=== PATIENT | female | born 1965 | race Caucasian/White ===

== ENCOUNTER 2019-06-17 17:54 | Emergency (ER) | payer BC ==
[2019-06-17 18:12] VITALS: TEMP 98.1; BMI 36.1
[2019-06-17] MEDS ORDERED: FAMOTIDINE 10 MG TABLET PO ONE (18:25)
--- NOTE | 2019-06-17 18:43 | PDOC ---
History of Present Illness - General Chief Complaint: Chest Pain Stated Complaint: CHEST PAIN SENT FROM URGENT CARE Time Seen by Provider: 06/17/19 17:58 - History of Present Illness Initial Comments: Ms. Joyce is a 53 year old female with past medical history of GERD presenting with complaint of chest pain. She reports first experiencing this chest pain two days ago around 5am. The pain woke her from sleep, however, it resolved by 8am. Patient did not take any medication or seek medical treatment at that time. Patient experienced the chest pain again today around 3pm and reported recurrent bouts of the pain. She describes the pain as a tightness, boring straight through to her back. The pain was slightly alleviated when bending forwards. Patient was advised to take a baby aspirin by around 4:30pm, and states that the pain resolved afterwards. She then decided to go to an urgent care where EKG demonstrated low voltage QRS complexes and she was instructed to present to the ED. Patient currently denies any further pain since taking the aspirin. Patient denies any associated h/n/v/d, changes in vision, or SOB. Patient is followed by an outpatient director global sales for mitral valve regurgitation. She has had intermittent chest pain over the past several years, and had worked up - cardiac etiology has not been found. Reports that this episode of pain feels slightly worse than prior. Past History - Past Medical History Allergies/Adverse Reactions: Allergies Allergy/AdvReac Type Severity Reaction Status Date / Time Penicillins Allergy Mild Verified 06/17/19 17:56 Home Medications: Ambulatory Orders NK [No Known Home Medication] 06/17/19 COPD: No GI Disorders: Yes (GERD) Hypercholesterolemia: Yes Other medical history: BRAIN LESION ,VERTIGO - Psycho Social/Smoking Cessation Hx Smoking Status: No Smoking History: Never smoked Number of Cigarettes Smoked Daily: 0 Information on smoking cessation initiated: No Hx Alcohol Use: No Drug/Substance Use Hx: No Review of Systems - Review of Systems Comments:: ROS GENERAL/CONSTITUTIONAL: No fever or chills. No weakness._ HEAD, EYES, EARS, NOSE AND THROAT: No change in vision. No change in hearing. No sore throat._ CARDIOVASCULAR: Reports chest pain. No shortness of breath_ RESPIRATORY: Denies cough, hemoptysis_ GASTROINTESTINAL: No nausea, vomiting, diarrhea or constipation._ GENITOURINARY: No dysuria, frequency, or change in urination._ MUSCULOSKELETAL: No joint or muscle swelling or pain. No neck or back pain._ SKIN: No rash_ NEUROLOGIC: No headache, vertigo, loss of consciousness, or change in strength/ sensation._ ENDOCRINE: No increased thirst. No abnormal weight change_ HEMATOLOGIC/LYMPHATIC: No anemia, easy bleeding, or history of blood clots._ ALLERGIC/IMMUNOLOGIC: No hives or skin allergy._ *Physical Exam - Vital Signs Last Vital Signs Temp Pulse Resp BP Pulse Ox 98.1 F 77 17 143/92 99 06/17/19 17:56 06/17/19 20:23 06/17/19 20:23 06/17/19 20:23 06/17/19 20:23 - Physical Exam Comments: GENERAL: Awake, alert, and oriented to person/place/time, in no acute distress_ HEAD: No signs of trauma, normocephalic, atraumatic _ EYES: PERRLA, EOMI, sclera anicteric, conjunctiva clear_ ENT: Hearing grossly normal, nares patent, oropharynx clear without exudates. No uvular deviation. Moist mucosa_ NECK: Normal ROM, supple, no lymphadenopathy, JVD, or masses_ LUNGS: No distress, speaks in full sentences, clear to auscultation bilaterally _ CHEST: No rash or lesions. No TTP. HEART: Regular rate and rhythm, normal S1 and S2, 1/6 mitral murmur, peripheral pulses normal and equal bilaterally._ ABDOMEN: Soft, nontender, normoactive bowel sounds. No guarding, no rebound. No masses_ EXTREMITIES: Normal inspection, Normal range of motion, no edema. No clubbing or cyanosis_ NEUROLOGICAL: Cranial nerves II through XII grossly intact. Normal speech, normal gait, no focal sensorimotor deficits _ SKIN: Warm, Dry, normal turgor, no rashes or lesions noted_ ED Treatment Course - LABORATORY CBC & Chemistry Diagram: 06/17/19 18:50 06/17/19 18:50 - ADDITIONAL ORDERS Additional order review: Laboratory Results 06/17/19 06/17/19 06/17/19 18:50 18:50 18:50 Sodium 138 Potassium 4.5 Chloride 102 Carbon Dioxide 28 Anion Gap 8 BUN 11.0 Creatinine 0.7 Est GFR (CKD-EPI)AfAm 113.84 Est GFR (CKD-EPI)NonAf 98.23 Random Glucose 105 Calcium 9.0 Magnesium 1.9 Total Bilirubin 0.7 AST 25 ALT 29 Alkaline Phosphatase 97 Creatine Kinase 62 Troponin I < 0.03 Total Protein 7.9 Albumin 4.4 06/17/19 18:50 RBC 4.93 MCV 92.6 MCHC 33.4 RDW 13.7 MPV 9.1 Neutrophils % 66.6 Lymphocytes % 23.5 Monocytes % 6.6 Eosinophils % 2.6 Basophils % 0.7 - Medications Given in the ED: ED Medications Discontinued Medications Generic Name Dose Route Start Last Admin Trade Name Paul PRN Reason Stop Dose Admin Al Hydroxide/Mg Hydroxide 30 ml 06/17/19 19:15 06/17/19 19:28 Mylanta Oral Suspension - PO 06/17/19 19:16 30 ml ONCE ONE Administration Famotidine/Sodium Chloride 20 mg in 50 mls @ 100 mls/hr 06/17/19 19:15 19:28 Pepcid 20 Mg Premixed Ivpb - IVPB 06/17/19 19:44 100 mls/hr ONCE ONE Administration Medical Decision Making - Medical Decision Making 06/17/19 1800 53F with hx of GERD and mitral regurgitation presenting with midsternal chest pain that started 2 days ago. Sent in from urgent care for low voltage EKG. Reports similar prior episodes of chest pain but states that this is worse. No other medical history. Denies recent illness or sick contacts. DDx is broad and includes r/o ACS vs GERD vs costochondritis vs musculoskeletal pain. Obtain CBC, CMP, trop, EKG, CXR. 06/17/19 19:00 POCUS cardiac does not appear to show any pericardial effusion. POCUS GB does not appear to show choleliths, gallbladder thickening, or sludge. Labs reviewed and wnl. 06/17/19 19:20 Pt signed out to Dr. Meyers. Discharge - Discharge Information Problems reviewed: Yes Clinical Impression/Diagnosis: Chest pain Qualifiers: Chest pain type: unspecified Qualified Code(s): R07.9 - Chest pain, unspecified Condition: Stable - Follow up/Referral Referrals: Nina Britton [Primary Care Provider] - - Patient Discharge Instructions Patient Printed Discharge Instructions: DI for Chest Pain Additional Instructions: Return to the emergency department immediately with ANY new, persistent or worsening symptoms. Continue any medications as previously prescribed by your physician. You should follow up with your primary doctor as soon as possible regarding today's emergency department visit. . Please make sure your doctor reviews the results of your emergency evaluation. Thank you for coming to the Emergency Department today for your care. It was a pleasure to see you today. Please note that your evaluation is INCOMPLETE until you follow-up with your doctor. - Post Discharge Activity
[2019-06-17 19:10] LABS: BASO % 0.7 % (0-2.0); EOS % 2.6 % (0-4.5); HEMATOCRIT 45.7 % (32.4-45.2); HEMOGLOBIN 15.2 GM/dl (10.7-15.3); LYMPH % 23.5 % (8-40); MCH 30.9 pg (25.7-33.7); MCHC 33.4 g/dl (32.0-36.0); MEAN CELL VOLUME 92.6 fl (80-96); MEAN PLT VOLUME 9.1 fl (7.5-11.1); MONO % 6.6 % (3.8-10.2); NEUT % 66.6 % (42.8-82.8); PLATELET COUNT 222 K/MM3 (134-434); RBC 4.93 M/mm3 (3.60-5.2); RDW 13.7 % (11.6-15.6); WHITE BLOOD COUNT 9.2 K/mm3 (4.0-10.8)
--- NOTE | 2019-06-17 19:13 | PDOC ---
Documentation entered by Yolanda Medellin SCRIBE, acting as scribe for Isaiah Hopkins MD. Isaiah Hopkins MD: This documentation has been prepared by the Vignesh donnelly Aiswarya, SCRIBE, under my direction and personally reviewed by me in its entirety. I confirm that the documentation accurately reflects all work, treatment, procedures, and medical decision making performed by me. Attending Attestation - Resident Resident Name: Beck Soares - ED Attending Attestation I have performed the following: I have examined & evaluated the patient, The case was reviewed & discussed with the resident, I agree w/resident's findings & plan - Medical Decision Making 06/17/19 19:02 A portion of this note was documented by [employer] under my direction. I have reviewed the details of the note, within reason, and agree with the documentation with the following case summary and management plan written by me. 53-year-old female with history of mildly elevated cholesterol, GERD, otherwise healthy and active daily presents with second episode of chest pain over the last 2 days. Patient's first episode was during her sleep 2 nights ago, awoke with chest discomfort and diaphoresis, lasted 3 hours, then resolved. Of note, this was after eating ice cream and tomato sauce at dinner. Patient was in her baseline good health the last 2 days, which include walking over 6000 steps daily without difficulty. Today, while standing at the kitchen counter without any strenuous activity, developed the same chest discomfort and nausea/belching for less than 1 minute, she was seen at an outside urgent care and referred to the emergency department for evaluation of possible low voltage EKG. No infectious symptoms, no DVT or PE risk factors or symptoms, currently asymptomatic since 3 PM. Patient had normal stress test this year with her radiology transcriptionist, who she sees for history of mild mitral regurgitation. Echo at that time was also normal. Exam is normal, bedside [id number] ultrasound shows no evidence of pericardial effusion, normal gross wall motion, and normal gallbladder. 53-year-old female presents with atypical chest pain story, no exercise limitations at baseline, asymptomatic at this time with normal EKG. Heart score is 2, overall low risk for ACS. Not clinically consistent with infectious process or PE. Check labs, one troponin measurement would suffice given 4 hours since symptom onset EKG is normal Chest x-ray Pepcid Reassess and disposition accordingly. If above is within normal limits and patient remains asymptomatic with a normal second EKG, can discharge to follow- up with her radiology transcriptionist. Patient agrees with plan, family at bedside. Heart Score/ECG Review - History History: Slightly suspicious - Electrocardiogram EKG: Normal - Age Age: 45-65 - Risk Factors Based on the list above the patient has:: 1-2 risk factors - Troponin Troponin: </= normal limit - Score Heart Score - Total: 2 #1 ECG reviewed & interpreted by me at: 18:31 General ECG Interpretation: Sinus Rhythm, Normal Rate (71), Normal Intervals ( qtc 441), No acute ischemic changes Compared to previous ECG there are: No significant change (c/w 03/08. [place] [facility] [place] abnormality (inverted P waves))
[2019-06-17] MEDS ORDERED: FAMOTIDINE 20 MG/50 ML IVPB 20 MG/50 ML MG IVPB ONE ×2 (19:15→19:18)
[2019-06-17] MEDS ORDERED: MAG HYDROX/AL HYDROX/SIMETH 30 ML UNIT-DOSE CUP PO ONE (19:15)
[2019-06-17] MEDS ORDERED: MAG HYDROX/AL HYDROX/SIMETH 30 ML UNIT-DOSE CUP ONE (19:18)
[2019-06-17 19:19] LABS: ALBUMIN 4.4 g/dl (3.4-5.0); BILIRUBIN,TOTAL 0.7 mg/dl (0.2-1); CREATININE 0.7 mg/dl (0.55-1.3); MAGNESIUM 1.9 mg/dL (1.8-2.4); POTASSIUM 4.5 mmol/L (3.5-5.1); TOT PROT 7.9 g/dl (6.4-8.2)
--- NOTE | 2019-06-17 20:11 | PDOC ---
*Physical Exam - Vital Signs Last Vital Signs Temp Pulse Resp BP Pulse Ox 98.1 F 73 16 155/93 100 06/17/19 17:56 06/17/19 17:56 06/17/19 17:56 06/17/19 17:56 06/17/19 17:56 ED Treatment Course - LABORATORY CBC & Chemistry Diagram: 06/17/19 18:50 06/17/19 18:50 - ADDITIONAL ORDERS Additional order review: Laboratory Results 06/17/19 06/17/19 06/17/19 18:50 18:50 18:50 Sodium 138 Potassium 4.5 Chloride 102 Carbon Dioxide 28 Anion Gap 8 BUN 11.0 Creatinine 0.7 Est GFR (CKD-EPI)AfAm 113.84 Est GFR (CKD-EPI)NonAf 98.23 Random Glucose 105 Calcium 9.0 Magnesium 1.9 Total Bilirubin 0.7 AST 25 ALT 29 Alkaline Phosphatase 97 Creatine Kinase 62 Troponin I < 0.03 Total Protein 7.9 Albumin 4.4 06/17/19 18:50 RBC 4.93 MCV 92.6 MCHC 33.4 RDW 13.7 MPV 9.1 Neutrophils % 66.6 Lymphocytes % 23.5 Monocytes % 6.6 Eosinophils % 2.6 Basophils % 0.7 - Medications Given in the ED: ED Medications Discontinued Medications Generic Name Dose Route Start Last Admin Trade Name Beq PRN Reason Stop Dose Admin Al Hydroxide/Mg Hydroxide 30 ml 06/17/19 19:15 06/17/19 19:28 Mylanta Oral Suspension - PO 06/17/19 19:16 30 ml ONCE ONE Administration Famotidine/Sodium Chloride 20 mg in 50 mls @ 100 mls/hr 06/17/19 19:15 19:28 Pepcid 20 Mg Premixed Ivpb - IVPB 06/17/19 19:44 100 mls/hr ONCE ONE Administration ED Progress Note - Progress Note Progress Note: 06/17/19 20:09 , Care of this patient was transferred to pa from Dr. Anderson at 1900 hrs. Patient is a 53-year-old female who had an episode of chest pain last night that woke her from her sleep and then had approximately 3 minutes of chest pain approximately 4 hours prior to arrival. Patient has work-up pending including troponin. Patient's EKG shows no acute changes. 22:00 Patient's troponin was negative/not measurable Repeat EKG was unchanged from prior Patient discharged home will follow-up with her primary care doctor Discharge - Discharge Information Problems reviewed: Yes Clinical Impression/Diagnosis: Chest pain Qualifiers: Chest pain type: unspecified Qualified Code(s): R07.9 - Chest pain, unspecified Condition: Stable - Admission No - Follow up/Referral Referrals: Nina Britton [Primary Care Provider] - - Patient Discharge Instructions Patient Printed Discharge Instructions: DI for Chest Pain Additional Instructions: Return to the emergency department immediately with ANY new, persistent or worsening symptoms. Continue any medications as previously prescribed by your physician. You should follow up with your primary doctor as soon as possible regarding today's emergency department visit. . Please make sure your doctor reviews the results of your emergency evaluation. Thank you for coming to the Emergency Department today for your care. It was a pleasure to see you today. Please note that your evaluation is INCOMPLETE until you follow-up with your doctor. - Post Discharge Activity
[2019-06-17 20:24] VITALS: BP 143/92; PULSE 77
--- NOTE | 2019-06-18 09:43 | EKG ---
Test Reason : Blood Pressure : / mmHG Vent. Rate : 071 BPM Atrial Rate : 071 BPM P-R Int : 152 ms QRS Dur : 078 ms QT Int : 406 ms P-R-T Axes : 025 003 022 degrees QTc Int : 441 ms NORMAL SINUS RHYTHM SEPTAL INFARCT , AGE UNDETERMINED ABNORMAL ECG NO PREVIOUS ECGS AVAILABLE Confirmed by JANESSA SCHAFFER, VISHNU ([id number]) on 06/18/2019 9:43:06 AM Referred By: DR OLSON Confirmed By:VISHNU RIDDLE MD
--- NOTE | 2019-06-18 09:43 | EKG ---
Test Reason : Blood Pressure : / mmHG Vent. Rate : 067 BPM Atrial Rate : 067 BPM P-R Int : 146 ms QRS Dur : 080 ms QT Int : 414 ms P-R-T Axes : 053 003 022 degrees QTc Int : 437 ms NORMAL SINUS RHYTHM POSSIBLE LEFT ATRIAL ENLARGEMENT LOW VOLTAGE QRS BORDERLINE ECG WHEN COMPARED WITH ECG OF 17-JUN-2019 18:31, NO SIGNIFICANT CHANGE WAS FOUND Confirmed by JANESSA SCHAFFER, VISHNU ([id number]) on 06/18/2019 9:43:09 AM Referred By: DR LEMON Confirmed By:VISHNU RIDDLE MD
== END 2019-06-17 20:24 | disposition home or self-care (01) ==
LOC: FER 17:54
PROC: 3E033GC Introduction of Other Therapeutic Substance into Peripheral Vein, Percutaneous Approach (ICD-10-PCS; principal; 2019-06-17)
DX: R07.9 Chest pain, unspecified (principal); Z88.0 Allergy status to penicillin; K21.9 Gastro-esophageal reflux disease without esophagitis; I34.0 Nonrheumatic mitral (valve) insufficiency; R42 Dizziness and giddiness; E78.00 Pure hypercholesterolemia, unspecified
CPT/HCPCS: 36415; 71046-TC-FY; 80053; 82550; 83735; 84484; 85025; 93005; 99283-25